=== PATIENT | female | born 1980 | race Asian ===

== ENCOUNTER 2019-08-06 06:07 | Emergency (ER) | payer OTHER ==
[~2019-08-06] VITALS: Ht 167.6 cm; Wt 108.9 kg
--- NOTE | 2019-08-06 06:19 | NUR ---
ED Nurse Note: Pt from home c/o epigastric pain. States N/V 3 hours ago. Pt provided urine upon bed arrival. Pt on cardiac rehabilitation program director, NAD, VSS. Will continue to monitor patient.
--- NOTE | 2019-08-06 06:21 | NUR ---
ED Nurse Note: ERMD at bedside.
[2019-08-06 06:23] VITALS: BP 139/87
--- NOTE | 2019-08-06 06:30 | NUR ---
ED Nurse Note: IV line established on the left AC with 20g. Blood drawn and sent to lab. Line patent and intact.
--- NOTE | 2019-08-06 06:35 | Emergency Room Report ---
History of Present Illness General Chief Complaint: Abdominal Pain Source: Patient Present Illness HPI 39-year-old female with no past medical history presents emergency room with epigastric pressure like sensation starting at 3:57 AM this morning. Patient reports similar episodes 3 times in the last few months, but this was the worst episode. She states she had one episode of vomiting, nonbloody, prior to arrival. She used Gas-X with minimal improvement. She denies any recent illness, change in diet, or travel. She denies any prior abdominal surgeries. Last menstrual period was first week of July. Patient denies any vaginal bleeding or discharge Allergies: Coded Allergies: No Known Allergies (Unverified , 08/06/19) Patient History Past Medical History: none Past Surgical History: none Last Menstrual Period: 07/17/19 Now: No : 0 Nursing Documentation-[facility] Hx Asthma: Yes Review of Systems Constitutional: Denies: chills, fever Respiratory: Denies: cough, shortness of breath Cardiovascular: Denies: chest pain, palpitations Gastrointestinal: Reports: abdominal pain, vomiting; Denies: diarrhea Genitourinary: Denies: hematuria, pain Musculoskeletal: Denies: joint swelling Skin: Denies: rash, lesions Neurological: Denies: headache, dizziness Physical Exam Vital Signs Date Time Temp Pulse Resp B/P (MAP) Pulse Ox O2 Delivery O2 Flow Rate FiO2 08/06/19 06:12 97.5 67 19 143/97 (112) 98 Room Air Sp02 EP Interpretation: reviewed General Appearance: well appearing, no apparent distress, non-toxic Head: normocephalic, atraumatic Eyes: bilateral eye normal inspection ENT: hearing grossly normal, EOM grossly intact, moist mucus membranes Neck: supple Respiratory: lungs clear, normal breath sounds, no respiratory distress, speaking full sentences Cardiovascular #1: regular rate, rhythm, normal capillary refill Cardiovascular #2: 2+ radial (R), 2+ radial (L) Gastrointestinal: normal bowel sounds, soft, no mass, no organomegaly, non- distended, no guarding, no hernia, no rebound, tenderness - Epigastric and RUQ Rectal: deferred Genitourinary: no CVA tenderness Musculoskeletal: moves extm spontaneously, no lower extremity edema Neurologic: grossly normal Psychiatric: mood/affect normal Skin: warm/dry, normal turgor Medical Decision Making Diagnostic Impression: Primary Impression: Cholelithiasis ER Course 39-year-old female with epigastric abdominal pain and associated episode of vomiting. Exam showed tenderness in epigastric and right upper quadrant. Differential includes cholecystitis, cholelithiasis, gastritis, gastroenteritis, We will perform ultrasound and lab testing give patient antiemetics and reassess. Laboratory Tests Test 08/06/19 06:33 White Blood Count 7.5 K/UL (4.8-10.8) Red Blood Count 3.97 M/UL (4.20-5.40) L Hemoglobin 10.8 G/DL (12.0-16.0) L Hematocrit 32.0 % (37.0-47.0) L Mean Corpuscular Volume 81 FL (80-99) Mean Corpuscular Hemoglobin 27.2 PG (27.0-31.0) Mean Corpuscular Hemoglobin Concent 33.7 G/DL (32.0-36.0) Red Cell Distribution Width 13.4 % (11.6-14.8) Platelet Count 299 K/UL (150-450) Mean Platelet Volume 7.8 FL (6.5-10.1) Neutrophils (%) (Auto) 46.0 % (45.0-75.0) Lymphocytes (%) (Auto) 45.9 % (20.0-45.0) H Monocytes (%) (Auto) 5.4 % (1.0-10.0) Eosinophils (%) (Auto) 1.4 % (0.0-3.0) Basophils (%) (Auto) 1.2 % (0.0-2.0) Urine Color Pale yellow Urine Appearance Cloudy Urine pH 8 (4.5-8.0) Urine Specific [place] 1.015 (1.005-1.035) Urine Protein Negative (NEGATIVE) Urine Glucose (UA) Negative (NEGATIVE) Urine Ketones Negative (NEGATIVE) Urine Blood Negative (NEGATIVE) Urine Nitrite Negative (NEGATIVE) Urine Bilirubin Negative (NEGATIVE) Urine Urobilinogen Normal MG/DL (0.0-1.0) Urine Leukocyte Esterase Negative (NEGATIVE) Urine HCG, Qualitative Negative (NEGATIVE) Sodium Level 139 MMOL/L (136-145) Potassium Level 3.3 MMOL/L (3.5-5.1) L Chloride Level 105 MMOL/L (98-107) Carbon Dioxide Level 28 MMOL/L (21-32) Anion Gap 6 mmol/L (5-15) Blood Urea Nitrogen 13 mg/dL (7-18) Creatinine 1.0 MG/DL (0.55-1.30) Estimate Glomerular Filtration Rate > 60 mL/min (>60) Glucose Level 126 MG/DL (74-106) H Calcium Level 8.5 MG/DL (8.5-10.1) Total Bilirubin 0.2 MG/DL (0.2-1.0) Aspartate Amino Transferase (AST) 23 U/L (15-37) Alanine Aminotransferase (ALT) 48 U/L (12-78) Alkaline Phosphatase 82 U/L (46-116) Total Protein 7.9 G/DL (6.4-8.2) Albumin 3.5 G/DL (3.4-5.0) Globulin 4.4 g/dL Albumin/Globulin Ratio 0.8 (1.0-2.7) L Lipase 111 U/L (73-393) Lab Results Impression Lab testing shows no elevated WBC, mild anemia. CMP within normal limits other than mild hypokalemia. CT/MRI/US Diagnostic Results CT/MRI/US Diagnostic Results : Imaging Test Ordered: Ultrasound abdomen Impression Ultrasound of abdomen showed a stone in the neck of the gallbladder, no signs of common bile dilation, pericholecystic fluid, anterior wall thickening, or Camarena sign. Last Vital Signs Date Time Temp Pulse Resp B/P (MAP) Pulse Ox O2 Delivery O2 Flow Rate FiO2 08/06/19 06:23 97.5 18 139/87 98 Room Air 08/06/19 06:23 66 Reevaluation Impression Patient has no signs of cholecystitis at this time. Patient is stable for outpatient follow-up and discharge. Recommended seeing primary care doctor and surgeon as soon as possible. Disposition: HOME, SELF-CARE Condition: Stable Patient Instructions: Cholelithiasis Additional Instructions: Please follow-up with your primary care doctor's office in 2 to 3 days for reevaluation. Please make an appointment with the surgeon for evaluation of gallbladder/cholecystectomy. Please adhere to a low-fat to no fat diet to prevent recurrence of symptoms. Jose Eduardo Vidal M.D. Aug 06, 2019 06:35
--- NOTE | 2019-08-06 06:47 | NUR ---
ED Nurse Note: Patient is calm, sleeping, NAD, VSS.
[2019-08-06 06:51] LABS: APPEARANCE,URINE CLOUDY; BILIRUBIN, URINE NEGATIVE (NEGATIVE); COLOR,URINE PALE YELLOW; GLUCOSE, URINE (UA) NEGATIVE (NEGATIVE); KETONES,URINE NEGATIVE (NEGATIVE); LEUKOCYTE ESTERASE ,URINE NEGATIVE (NEGATIVE); NITRITE,URINE NEGATIVE (NEGATIVE); PH,URINE 8 (4.5-8.0); PROTEIN,URINE NEGATIVE (NEGATIVE); UROBILINOGEN,URINE NORMAL MG/DL (0.0-1.0)
[2019-08-06 07:00] LABS: ANION GAP 6 mmol/L (5-15); BLOOD UREA NITROGEN 13 mg/dL (7-18); CALCIUM 8.5 MG/DL (8.5-10.1); CARBON DIOXIDE 28 MMOL/L (21-32); CHLORIDE 105 MMOL/L (98-107); POTASSIUM 3.3 MMOL/L (3.5-5.1); SODIUM 139 MMOL/L (136-145)
--- NOTE | 2019-08-06 07:01 | NUR ---
HAND-OFF: Report given to Haim PERRY. PT VSS, calm, resting in bed.
[2019-08-06 07:06] LABS: ALANINE AMINOTRANSFERASE 48 U/L (12-78); ALBUMIN 3.5 G/DL (3.4-5.0); ALBUMIN/GLOBULIN RATIO 0.8 (1.0-2.7); ALKALINE PHOSPHATASE 82 U/L (46-116); ASPARTATE AMINO TRANSFERASE 23 U/L (15-37); BASOPHILS % (AUTO) 1.2 % (0.0-2.0); BILIRUBIN,TOTAL 0.2 MG/DL (0.2-1.0); EOSINOPHILS % (AUTO) 1.4 % (0.0-3.0); HEMOGLOBIN 10.8 G/DL (12.0-16.0); LYMPHOCYTES % (AUTO) 45.9 % (20.0-45.0); MEAN CORPUSCULAR VOLUME 81 FL (80-99); MONOCYTES % (AUTO) 5.4 % (1.0-10.0); PLATELET COUNT 299 K/UL (150-450); RED BLOOD COUNT 3.97 M/UL (4.20-5.40); RED CELL DISTRIBUTION WIDTH 13.4 % (11.6-14.8); WHITE BLOOD COUNT 7.5 K/UL (4.8-10.8)
[2019-08-06 07:10] VITALS: BP 129/82
--- NOTE | 2019-08-06 07:10 | NUR ---
ED Nurse Note: Patient resting in bed, on the cardiac monior. VSS. Patient states she feels much better than when she first arrived. Patient currently states she has only 1-2/10 abdominal pain.
[2019-08-06 08:05] VITALS: BP 127/79
--- NOTE | 2019-08-06 08:05 | NUR ---
ER DISCHARGE NOTE: Patient cleared for DC by Dr. Vidal. VSS, no s/s of acute distress. Patient ID band removed, IV discontinued without complications. Gait steady, all belongings with patient.
--- NOTE | 2019-08-06 10:12 | Diagnostic Imaging Report ---
EXAM: US Abdomen Complete CLINICAL HISTORY: ABD PAIN TECHNIQUE: Real-time ultrasound of the abdomen with image documentation. COMPARISON: None FINDINGS: Liver: Liver measures 17.6 cm, mildly enlarged. Increased echogenicity of the liver suggestive of hepatic steatosis. No intrahepatic bile duct dilation. Gallbladder: 1.3 cm stone in the gallbladder neck. No significant gallbladder wall thickening or pericholecystic fluid. Negative sonographic Camarena's sign. Common bile duct: Common bile duct is mildly dilated, measuring 7 mm. No choledocholithiasis identified on this exam. Further evaluation could be performed with ERCP or MRCP if clinically indicated. Pancreas: Pancreas is not well-visualized due to overlying bowel gas. Visualized portions of the pancreas are grossly unremarkable. Kidneys: Right kidney measures 9.2 cm in length. No hydronephrosis or stone. Left kidney measures 11.3 cm in length. No hydronephrosis or stone. Spleen: Spleen measures 12.2 cm. Aorta: Visualized portions of the aorta are unremarkable. Inferior vena cava: Not well-visualized due to overlying bowel gas. Other vasculature: Patent main portal vein with normal direction of flow. Free fluid: No ascites. IMPRESSION: 1. Common bile duct is mildly dilated, measuring 7 mm. No choledocholithiasis identified on this exam. Further evaluation could be performed with ERCP or MRCP if clinically indicated. 2. 1.3 cm stone in the gallbladder neck. No significant gallbladder wall thickening or pericholecystic fluid. Negative sonographic Camarena's sign. 3. Mild hepatomegaly with fatty infiltration.
== END 2019-08-06 08:05 | disposition home or self-care (01) ==
LOC: EMR 06:37
DX: K80.20 Calculus of gallbladder without cholecystitis without obstruction (principal); R11.10 Vomiting, unspecified; D64.9 Anemia, unspecified; E87.6 Hypokalemia
CPT/HCPCS: 36415; 76700; 80053; 81003; 81025; 83690; 85025; 96361; 96374; S0028; Z7502; 99284